=== PATIENT | male | born 2000 | race Two or more races ===

== ENCOUNTER 2023-01-10 20:17 | Emergency (ER) | payer SELFPAY ==
[~2023-01-10] VITALS: Ht 177.8 cm; Wt 72.6 kg
[2023-01-10 20:26] VITALS: TEMP 97.7
[2023-01-11 01:58] VITALS: BP 109/71; O2SAT 99
== END 2023-01-11 01:58 | disposition home or self-care (01) ==
LOC: ER 20:22
DX: F10.129 Alcohol abuse with intoxication, unspecified (principal); F17.200 Nicotine dependence, unspecified, uncomplicated; J45.909 Unspecified asthma, uncomplicated; Y90.6 Blood alcohol level of 120-199 mg/100 ml
CPT/HCPCS: 36415; G0480